=== PATIENT | female | born 1930 | race Caucasian/White ===

== ENCOUNTER → 2019-03-04 | Outpatient (CLI) | payer OTHER ==
[~2019-03-04] MED LIST: ASPI325 PO; ASPI81CH PO; BISA5EC PO; EYE DROPS BOTHEYES; FLUT.05NI; HYDACE10B PO; HYDCHL25 PO; LEVSOD100 PO; LOSARTAN POTAS100 MG PO; LOSHYD100 PO; PRED5 PO; SIMV10 PO; UNKNOWN MED PO
== END | disposition home or self-care (01) ==
LOC: LAB EV 13:33 → LAB SHORT 13:33
DX: L72.3 Sebaceous cyst (principal)
CPT/HCPCS: 87070; 87075; 87076; 87077; 87186; 87205